=== PATIENT | female | born 1955 | race Caucasian/White ===

== ENCOUNTER 2016-09-12 16:04 | Emergency (ER) | payer BC ==
[~2016-09-12] VITALS: Ht 167.6 cm; Wt 49.4 kg
[2016-09-12] MEDS ORDERED: SODIUM CHLORIDE FLUSH 10ML SYR IVF ONE (16:30)
[2016-09-12] MEDS ORDERED: DIAZEPAM 5 MG/ML, 10ML VIAL IV ONE (16:30)
[2016-09-12] MEDS ORDERED: KETOROLAC 60 MG/2 ML IM ONE (16:30)
[2016-09-12] MEDS ORDERED: SODIUM CHLORIDE 0.9% 1,000ML IVBOLUS ONE (16:30)
[2016-09-12 17:06] LABS: ASPARTATE AMINO TRANSFERASE 16 U/L (15-37); BLOOD UREA NITROGEN 7 mg/dL (7-18)
[2016-09-12] MEDS ORDERED: KETOROLAC 30 MG/1 ML ONE (17:16)
[2016-09-12] MEDS ORDERED: AMPICILLIN/SULBACTAM 3 GM in SODIUM CHLORIDE 0.9% 100 ML IVPB ONE (18:00)
[2016-09-12 19:09] VITALS: BP 127/62
== END 2016-09-12 19:47 | disposition home or self-care (01) ==
LOC: ED 19:13
DX: R51 Headache (principal); F17.200 Nicotine dependence, unspecified, uncomplicated; Z91.041 Radiographic dye allergy status
CPT/HCPCS: 36415; 80053; 85025; 93005; 96361; 96372; 96374; 96375; 99285; J0295; J1885; J3360; J7030

== ENCOUNTER → 2020-08-19 | Outpatient (CLI) | payer MEDICARE | END | disposition home or self-care (01) | LOC: CFH 09:31 | PROVIDERS: ATTEND Family Medicine | DX: Z12.31 Encounter for screening mammogram for malignant neoplasm of breast (principal); N95.8 Other specified menopausal and perimenopausal disorders; M85.80 Other specified disorders of bone density and structure, unspecified site | CPT/HCPCS: 77063; 77067; 77080 ==